=== PATIENT | female | born 1970 | race American Indian/Alaskan Native ===

== ENCOUNTER 2017-07-21 18:15 | Inpatient (IN) | payer OTHER ==
[2017-07-21] MEDS ORDERED: ASPIRIN PO ONE (19:50)
[2017-07-21 20:02] LABS: Basophils % (Auto) 0.7 % (0.0-1.8); Eosinophils # (Auto) 0.2 K/mm3 (0.0-0.4); Eosinophils % (Auto) 2.6 % (0.0-4.3); Hematocrit 33.2 % (30.3-42.9); Hemoglobin 10.9 gm/dl (10.1-14.3); Lymphocytes # (Auto) 2.2 K/mm3 (1.2-5.4); Lymphocytes % (Auto) 34.9 % (13.4-35.0); Mean Corpuscular HGB Conc 33 % (30-34); Mean Corpuscular Volume 71 fl (79-97); Monocytes # (Auto) 0.5 K/mm3 (0.0-0.8); Monocytes % (Auto) 8.5 % (0.0-7.3); Platelet Count 378 K/mm3 (140-440); Red Blood Count 4.68 M/mm3 (3.65-5.03)
[2017-07-21 20:05] LABS: Mean Corpuscular Hemoglobin 23 pg (28-32)
[2017-07-21 20:24] LABS: BUN/Creatinine Ratio 16; Blood Urea Nitrogen 16 mg/dL (7-17); Calcium 8.5 mg/dL (8.4-10.2); Hemolysis Index 17
--- NOTE | 2017-07-21 20:35 | Emergency Department Report ---
ED Chest Pain HPI - General Chief Complaint: Chest Pain Stated Complaint: CHEST PAIN Time Seen by Provider: 07/21/17 20:26 Source: patient Mode of arrival: Ambulatory Limitations: No Limitations - History of Present Illness Initial Comments: Patient is 47 years old female with no significant past medical history presented to the ER complaining of left-sided chest pain, sharp in nature radiating to the left upper extremity. Patient denied any shortness of breath, fever. No nausea no vomiting. MD Complaint: chest pain -: Last night Onset: during rest Pain Location: left chest Pain Radiation: LUE Severity scale (0 -10): 5 Quality: sharp Consistency: intermittent Treatments Prior to Arrival: none - Related Data Allergies Allergy/AdvReac Type Severity Reaction Status Date / Time Penicillins AdvReac Rash Unverified 12/05/15 11:07 Heart Score - HEART Score History: Moderately suspicious EKG: Non-specific Age: 45-65 Risk factors: No known risk factors Troponin: 1-3x normal limit HEART Score: 4 - Critical Actions Critical Actions: 4-6 pts:12-16.6% risk of adverse cardiac event. Should be admitted ED Review of Systems ROS: Stated complaint: CHEST PAIN Other details as noted in HPI Comment: All other systems reviewed and negative Constitutional: denies: chills, fever Respiratory: cough. denies: orthopnea, shortness of breath, SOB with exertion Cardiovascular: chest pain. denies: palpitations Gastrointestinal: denies: abdominal pain, nausea, vomiting Neurological: denies: headache, weakness, numbness ED Past Medical Hx - Past Medical History Previous Medical History?: No ED Physical Exam - General Limitations: No Limitations General appearance: alert, in no apparent distress - Head Head exam: Present: atraumatic, normocephalic, normal inspection - Eye Eye exam: Present: normal appearance, PERRL - ENT ENT exam: Present: normal exam, normal orophraynx, mucous membranes moist - Neck Neck exam: Present: normal inspection, full ROM. Absent: tenderness - Respiratory Respiratory exam: Present: normal lung sounds bilaterally. Absent: respiratory distress, wheezes, rales, rhonchi, chest wall tenderness, accessory muscle use, decreased breath sounds, prolonged expiratory - Cardiovascular Cardiovascular Exam: Present: regular rate, normal rhythm, normal heart sounds - GI/Abdominal GI/Abdominal exam: Present: soft, normal bowel sounds. Absent: distended, tenderness, guarding, rebound, rigid, organomegaly, mass, bruit, pulsatile mass , hernia - Extremities Exam Extremities exam: Present: normal inspection, full ROM, normal capillary refill - Back Exam Back exam: Present: normal inspection, full ROM. Absent: tenderness, CVA tenderness (R), CVA tenderness (L), muscle spasm - Neurological Exam Neurological exam: Present: alert, oriented X3, CN II-XII intact, normal gait - Skin Skin exam: Present: warm, intact, normal color ED Course Vital Signs 07/21/17 07/21/17 07/21/17 18:25 20:41 20:45 Temperature 98.4 F Pulse Rate 89 Respiratory 16 16 Rate Blood Pressure 134/92 O2 Sat by Pulse 100 100 99 Oximetry 07/21/17 07/21/17 07/21/17 21:00 21:15 21:30 Temperature Pulse Rate 82 77 77 Respiratory 18 19 18 Rate Blood Pressure 139/100 139/100 132/91 O2 Sat by Pulse 98 100 Oximetry 07/21/17 07/21/17 07/21/17 21:45 22:00 22:15 Temperature Pulse Rate 89 83 74 Respiratory 18 19 17 Rate Blood Pressure 132/91 141/95 141/95 O2 Sat by Pulse 100 100 100 Oximetry - Reevaluation(s) Reevaluation #1: 07/21/17 22:29 His case with [facility] [employer] director Dr Madrigal, who advised that patient to be admitted to be ruled out at the [facility] and to follow-up with them in their office. 07/21/17 22:33 ED Medical Decision Making - Lab Data Result diagrams: 07/21/17 19:53 07/21/17 19:53 - EKG Data -: EKG Interpreted by Me EKG shows normal: sinus rhythm - EKG Data Interpretation: no acute changes - Radiology Data Radiology results: report reviewed Chest x-ray unremarkable. - Medical Decision Making I discussed the patient is Dr. Kianna Bardales, and presented the patient, she agreed to admit to her service. Critical care attestation.: If time is entered above; I have spent that time in minutes in the direct care of this critically ill patient, excluding procedure time. ED Disposition Clinical Impression: Chest pain Disposition: DC-09 OP ADMIT IP TO THIS HOSP Is pt being admited?: Yes Condition: Stable Instructions: Chest Pain (ED) Referrals: VIVIAN CAMPO MD [Primary Care Provider] - 3-5 Days
[2017-07-21 20:44] LABS: Chol/HDL Ratio 2.86 %; HDL Cholesterol 46 mg/dL (40-59); LDL Cholesterol,Direct 81 mg/dL (50-130)
--- NOTE | 2017-07-21 20:59 | XRay Report ---
FINAL REPORT EXAM: XR CHEST 1V AP HISTORY: chest pain TECHNIQUE: upright single view chest PRIORS: None. FINDINGS: Cardiac and mediastinal contours are unremarkable. No focal pulmonary infiltrate is identified. No pleural fluid collection seen. Pulmonary vasculature is unremarkable. IMPRESSION: Negative single-view chest
[2017-07-21] MEDS ORDERED: ASPIRIN ONE (21:55)
[2017-07-21] MEDS ORDERED: TYLENOL PO PRN (23:19)
[2017-07-21] MEDS ORDERED: SODIUM CHLORIDE FLUSH SYRINGE 10 ML IV PRN (23:19)
[2017-07-21] MEDS ORDERED: ZOFRAN IV PRN (23:19)
[2017-07-21] MEDS ORDERED: MORPHINE IV PRN (23:19)
--- NOTE | 2017-07-21 23:19 | History and Physical Report ---
History of Present Illness Date of examination: 07/21/17 History of present illness: This is a 47-year-old man with no medical problems comes emergency room with complains of chest pain that started today. She describes the pain as sharp in the left chest, intermittent in nature lasting for less than 5 minutes, intensity 5/10, she can identify exacerbating or relieving factors. Admits to nausea vomiting, diaphoresis and shortness of breath, and a previous stress test Review of systems Constitutional: no weight loss, chills Ears, eyes, nose, mouth and throat: no nasal congestion, no nasal discharge, no sinus pressure, no vision change, no red eye. Neck: No neck pain or rigidity. Cardiovascular: no palpitations Respiratory: No cough Gastrointestinal: no abdominal pain, hematochezia Genitourinary : no dysuria, frequency , no hematuria Musculoskeletal: no joint swelling or muscle ache Integumentary: no rash, no pruritis Neurological: no parathesias, no numbness, no focal weakness Endocrine: no cold or heat intolerance, no polyuria or polydipsia Hematologic/Lymphatic: no easy bruising, no easy bleeding, no gland swelling Allergic/Immunologic: no urticaria, no angioedema. PAST MEDICAL HISTORY: None PAST SURGICAL HISTORY: None SOCIAL HISTORY: Denies alcohol, tobacco, drugs FAMILY HISTORY: Hypertension Medications and Allergies Allergies Allergy/AdvReac Type Severity Reaction Status Date / Time Penicillins AdvReac Rash Unverified 12/05/15 11:07 Home Medications Medication Instructions Recorded Confirmed Last Taken Type Pantoprazole [Protonix] 40 mg PO QDAY #30 tablet 07/22/17 Unknown Rx Exam - Physical Exam Narrative exam: Gen. appearance: Patient lying in bed, no apparent distress HEENT: Normocephalic, atraumatic, pupils equally round and reactive to light, extraocular movement intact, and no sclericterus,. No JVD or thyromegaly or nodule,neck supple, no carotid bruit ,mucous membranes moist, no exudate or erythema Heart: S1, S2, regular rate and rhythm Lungs: Clear to auscultation bilaterally, breathing comfortable Abdomen: Positive bowel sounds, nontender, nondistended, no organomegaly Extremity: No edema, cyanosis, clubbing Skin: No rash, nodules, warm, dry Neuro: Oriented 3, cranial nerves II-12 intact, speech is fluent, motor and sensory intact - Constitutional Vitals: Temp Pulse Resp BP Pulse Ox 98.4 F 82 20 143/97 99 07/21/17 18:25 07/21/17 23:00 07/21/17 23:00 07/21/17 23:00 07/21/17 23:00 Results - Labs CBC & Chem 7: 07/22/17 05:23 07/22/17 05:23 Labs: Abnormal lab results 07/21/17 07/21/17 Range/Units 19:53 19:53 MCV 71 L (79-97) fl MCH 23 L (28-32) pg RDW 19.0 H (13.2-15.2) % [place] % (Auto) 8.5 H (0.0-7.3) % Troponin T 0.129 H* (0.00-0.029) ng/mL - Imaging and Cardiology EKG: image reviewed Chest x-ray: image reviewed Assessment and Plan Assessment Chest pain Plan Admit medicine Check cardiac enzymes, consult cardiology DVT prophylaxis, start aspirin, IV morphine
[2017-07-22 00:48] LABS: Creatine Kinase MB 6.5 ng/mL (0.0-4.0)
[2017-07-22 05:51] LABS: Eosinophils # (Auto) 0.3 K/mm3 (0.0-0.4); Eosinophils % (Auto) 5.6 % (0.0-4.3); Hematocrit 32.3 % (30.3-42.9); Hemoglobin 10.6 gm/dl (10.1-14.3); Lymphocytes % (Auto) 41.5 % (13.4-35.0); Mean Corpuscular HGB Conc 33 % (30-34); Mean Corpuscular Volume 71 fl (79-97); Monocytes # (Auto) 0.5 K/mm3 (0.0-0.8); Monocytes % (Auto) 10.1 % (0.0-7.3); Platelet Count 334 K/mm3 (140-440); Red Blood Count 4.55 M/mm3 (3.65-5.03); Red Cell Distribution Width 18.8 % (13.2-15.2)
[2017-07-22 05:52] LABS: Mean Corpuscular Hemoglobin 23 pg (28-32)
[2017-07-22 06:11] LABS: Creatine Kinase MB 4.2 ng/mL (0.0-4.0)
[2017-07-22 06:17] LABS: BUN/Creatinine Ratio 14; Blood Urea Nitrogen 13 mg/dL (7-17); Calcium 8.5 mg/dL (8.4-10.2); Hemolysis Index 1
[2017-07-22 09:03] VITALS: BP 115/77
[2017-07-22] MEDS ORDERED: NACL 0.9% 500 ML 500 ML IV SCH (10:00)
[2017-07-22] MEDS ORDERED: SODIUM CHLORIDE FLUSH SYRINGE 10 ML IV SCH (10:00)
--- NOTE | 2017-07-22 10:02 | Progress Note ---
Assessment and Plan Assessment and plan: This is a 47-year-old man with no medical problems comes emergency room with complains of chest pain that started today. She describes the pain as sharp in the left chest, intermittent in nature lasting for less than 5 minutes, intensity 5/10, she can identify exacerbating or relieving factors. Admits to nausea vomiting, diaphoresis and shortness of breath, and a previous stress test Chest pain S/P Cardiac cath - normal coronaries and normal LVEF consult following, CTA ordered to r/O PE, continue aspirin therapy Obesity Patient counselled NSTEMI cardiology following, CE trending down DVT prophylaxis SCDs History Interval history: Patient seen and examined. No new issues overnight. She denies SOB, NV. Labs and nursing notes reviewed. Hospitalist Physical - Constitutional Vitals: Temp Pulse Resp BP Pulse Ox 98.1 F 80 16 115/77 97 07/22/17 08:47 07/22/17 08:47 07/22/17 08:47 07/22/17 08:47 07/22/17 08:47 General appearance: Present: no acute distress, well-nourished, obese - EENT Eyes: Present: PERRL, EOM intact ENT: hearing intact, clear oral mucosa - Neck Neck: Present: supple, normal ROM - Respiratory Respiratory effort: normal Respiratory: bilateral: CTA - Cardiovascular Rhythm: regular Heart Sounds: Present: S1 & S2 - Extremities Extremities: no ischemia, No edema - Abdominal General gastrointestinal: soft, non-tender, non-distended - Integumentary Integumentary: Present: clear, warm, dry - Psychiatric Psychiatric: appropriate mood/affect, intact judgment & insight, cooperative - Neurologic Neurologic: CNII-XII intact, moves all extremities - Allied Health Allied health notes reviewed: nursing Results - Labs CBC & Chem 7: 07/22/17 05:23 07/22/17 05:23 Labs: Laboratory Last Values WBC 4.9 K/mm3 (4.5-11.0) 07/22/17 05:23 RBC 4.55 M/mm3 (3.65-5.03) 07/22/17 05:23 Hgb 10.6 gm/dl (10.1-14.3) 07/22/17 05:23 Hct 32.3 % (30.3-42.9) 07/22/17 05:23 MCV 71 fl (79-97) L 07/22/17 05:23 MCH 23 pg (28-32) L 07/22/17 05:23 MCHC 33 % (30-34) 07/22/17 05:23 RDW 18.8 % (13.2-15.2) H 07/22/17 05:23 Plt Count 334 K/mm3 (140-440) 07/22/17 05:23 Lymph % (Auto) 41.5 % (13.4-35.0) H 07/22/17 05:23 Dane % (Auto) 10.1 % (0.0-7.3) H 07/22/17 05:23 Eos % (Auto) 5.6 % (0.0-4.3) H 07/22/17 05:23 Baso % (Auto) 1.0 % (0.0-1.8) 07/22/17 05:23 Lymph # 2.0 K/mm3 (1.2-5.4) 07/22/17 05:23 Dane # 0.5 K/mm3 (0.0-0.8) 07/22/17 05:23 Eos # 0.3 K/mm3 (0.0-0.4) 07/22/17 05:23 Baso # 0.0 K/mm3 (0.0-0.1) 07/22/17 05:23 Seg Neutrophils % 41.8 % (40.0-70.0) 07/22/17 05:23 Seg Neutrophils # 2.0 K/mm3 (1.8-7.7) 07/22/17 05:23 D-Dimer 193.66 ng/mlDDU (0-234) 07/21/17 20:34 Sodium 139 mmol/L (137-145) 07/22/17 05:23 Potassium 3.9 mmol/L (3.6-5.0) 07/22/17 05:23 Chloride 102.9 mmol/L (98-107) 07/22/17 05:23 Carbon Dioxide 22 mmol/L (22-30) 07/22/17 05:23 Anion Gap 18 mmol/L 07/22/17 05:23 BUN 13 mg/dL (7-17) 07/22/17 05:23 Creatinine 0.9 mg/dL (0.7-1.2) 07/22/17 05:23 Estimated GFR > 60 ml/min 07/22/17 05:23 BUN/Creatinine Ratio 14 % 07/22/17 05:23 Glucose 94 mg/dL (65-100) 07/22/17 05:23 Calcium 8.5 mg/dL (8.4-10.2) 07/22/17 05:23 Total Creatine Kinase 168 units/L (30-135) H 07/22/17 05:23 CK-MB (CK-2) 4.2 ng/mL (0.0-4.0) H 07/22/17 05:23 CK-MB (CK-2) Rel Index 2.5 (0-4) 07/22/17 05:23 Troponin T 0.070 ng/mL (0.00-0.029) H D 07/22/17 05:23 NT-Pro-B Natriuret Pep 41.38 pg/mL (0-450) 07/21/17 19:53 Triglycerides 81 mg/dL (2-149) 07/21/17 19:53 Cholesterol 132 mg/dL (50-199) 07/21/17 19:53 LDL Cholesterol Direct 81 mg/dL (50-130) 07/21/17 19:53 HDL Cholesterol 46 mg/dL (40-59) 07/21/17 19:53 Cholesterol/HDL Ratio 2.86 % 07/21/17 19:53 Lipase 38 units/L (13-60) 07/21/17 19:53
[2017-07-22 11:10] LABS: INR 0.96 (0.87-1.13)
--- NOTE | 2017-07-22 11:10 | Consultation ---
History of Present Illness Consult date: 07/22/17 Consult reason: chest pain, elevated troponin History of present illness: This is a 47yr old woman with no prior cardiac history or recent cardiac workup who is admitted with chest pain. Patient reports she developed chest pain yesterday, associated with left arm pain/numbness, nausea vomiting, diaphoresis and shortness of breath. Cardiac enzymes were measured which resulted a CK/MB of 6.5 and a normal relative index of 3.0. Troponin T of 0.117. An EKG shows a sinus rhythm, no acute ischemic changes. A cardiology consultation was requested for further evaluation. Medications and Allergies Allergies Allergy/AdvReac Type Severity Reaction Status Date / Time Penicillins AdvReac Rash Unverified 12/05/15 11:07 Home Medications Medication Instructions Recorded Confirmed Last Taken Type No Known Home Medications [No 07/21/17 07/21/17 Unknown History Reported Home Medications] Active Meds: Active Medications Acetaminophen (Tylenol) 650 mg PO Q4H PRN PRN Reason: Pain MILD(1-3)/Fever >100.5/MASON Sodium Chloride (Nacl 0.9% 500 Ml) 500 mls @ 50 mls/hr IV DIRECT [place] Stop: 07/22/17 19:59 Last Admin: 07/22/17 10:27 Dose: 50 mls/hr Morphine Sulfate (Morphine) 2 mg IV Q4H PRN PRN Reason: Pain, Moderate (4-6) Ondansetron HCl (Zofran) 4 mg IV Q8H PRN PRN Reason: Nausea And Vomiting Sodium Chloride (Sodium Chloride Flush Syringe 10 Ml) 10 ml IV BID [facility] Last Admin: 07/22/17 10:27 Dose: 10 ml Sodium Chloride (Sodium Chloride Flush Syringe 10 Ml) 10 ml IV PRN PRN PRN Reason: LINE FLUSH Physical Examination Vital Signs Temp Pulse Resp BP Pulse Ox 98.4 F 89 16 134/92 100 07/21/17 18:25 07/21/17 18:25 07/21/17 18:25 07/21/17 18:25 07/21/17 18:25 General appearance: no acute distress HEENT: Positive: PERRL Cardiac: Positive: Reg Rate and Rhythm Neuro: Positive: Grossly Intact Results 07/22/17 05:23 07/22/17 05:23 Cardiac Enzymes 07/21/17 07/22/17 Range/Units 00:08 05:23 CK-MB (CK-2) 6.5 H 4.2 H (0.0-4.0) ng/mL Lipids 07/21/17 Range/Units 19:53 Triglycerides 81 (2-149) mg/dL Cholesterol 132 (50-199) mg/dL HDL Cholesterol 46 (40-59) mg/dL Cholesterol/HDL Ratio 2.86 % CBC 07/21/17 07/22/17 Range/Units 19:53 05:23 WBC 6.3 4.9 (4.5-11.0) K/mm3 RBC 4.68 4.55 (3.65-5.03) M/mm3 Hgb 10.9 10.6 (10.1-14.3) gm/dl Hct 33.2 32.3 (30.3-42.9) % Plt Count 378 334 (140-440) K/mm3 Lymph # 2.2 2.0 (1.2-5.4) K/mm3 Divide # 0.5 0.5 (0.0-0.8) K/mm3 Eos # 0.2 0.3 (0.0-0.4) K/mm3 Baso # 0.0 0.0 (0.0-0.1) K/mm3 Comprehensive Metabolic Panel 07/21/17 07/22/17 Range/Units 19:53 05:23 Sodium 137 139 (137-145) mmol/L Potassium 4.1 3.9 (3.6-5.0) mmol/L Chloride 101.2 102.9 (98-107) mmol/L Carbon Dioxide 23 22 (22-30) mmol/L BUN 16 13 (7-17) mg/dL Creatinine 1.0 0.9 (0.7-1.2) mg/dL Glucose 82 94 (65-100) mg/dL Calcium 8.5 8.5 (8.4-10.2) mg/dL Assessment and Plan Chest pain NSTEMI We will proceed with a cardiac cath for further ischemic evaluation.
[2017-07-22] MEDS ORDERED: HEPARIN 10,000 UNITS/10 ML ONE (11:26)
[2017-07-22] MEDS ORDERED: HEPARIN/NS 5000 UNIT/500ML(CATH LAB) 1,000 ML IR ONE (11:26)
[2017-07-22] MEDS ORDERED: CALAN ONE (11:26)
[2017-07-22] MEDS ORDERED: NITROGLYCERIN SYRINGE 3 ML ONE (11:26)
[2017-07-22] MEDS ORDERED: XYLOCAINE 2% INFILTRATI ONE (11:26)
[2017-07-22] MEDS ORDERED: SUBLIMAZE ONE (11:27)
[2017-07-22] MEDS ORDERED: VERSED ONE (11:27)
[2017-07-22] MEDS ORDERED: NACL 0.9% 500 ML 0 ML ONE (11:28)
--- NOTE | 2017-07-22 13:27 | Cardiac Catherization Report ---
LEFT HEART CATHETERIZATION INDICATION: Abnormal troponin, rule out non-ST elevation myocardial infarction and chest pain. ORDERING PHYSICIAN: Kavya Antonio MD PROCEDURES PERFORMED: 1. Selective left and right coronary angiography. 2. Left ventriculography. DESCRIPTION OF PROCEDURE: After obtaining written consent, the patient was draped using sterile technique. A 2% lidocaine was injected into the right wrist. A [place] vascular sheath was inserted into the right radial artery. A [place] JL3.5 catheter was used to selectively engage the left coronary artery. A [place] JL4 catheter was used to selectively engage the right coronary artery. A [place] JR4 catheter was used to hand inject the left ventriculogram. No complications occurred during the procedure. Hemostasis was achieved at the end of the procedure using manual pressure. SPECIMEN REMOVED: None. COMPLICATIONS: None. SEDATION: Physician and patient [id number] sedation start time 11:54 a.m. Physician patient [id number] sedation stop time was 12:05 p.m. Total sedation time was 11 minutes. FINDINGS: HEMODYNAMICS: Aortic pressure 123/88. LV systolic pressure 123 mmHg, and LVEDP 12 mmHg. No significant gradient noted across the left ventricular outflow tract. CARDIAC STRUCTURES: Left ventricle is normal in size and systolic function, left ventricular ejection fraction is estimated at 60% with normal contractility. CORONARY ANATOMY: 1. Left main is angiographically normal. 2. The LAD is angiographically normal. 3. Circumflex artery is angiographically normal. 4. The right coronary artery is a small nondominant vessel that is also angiographically normal. IMPRESSION: 1. Angiographically normal left dominant circulation. 2. Normal left ventricular size and ejection fraction. 3. Normal LVEDP. RECOMMENDATIONS: Continue medical therapy. Consider obtaining a V/Q scan to rule out venous thromboembolic disease. JOB# [id number] SANDY/CHARLIE
[2017-07-22] MEDS ORDERED: ASPIRIN PO SCH (14:00)
--- NOTE | 2017-07-22 16:53 | Nuclear Medicine Report ---
FINAL REPORT EXAM: NM LUNG SCAN PERF/VENT HISTORY: Chest Pain, normal coronaries by cath, r/o VTE TECHNIQUE: Perfusion imaging of the lungs was performed in multiple planar projections. Ventilation images were obtained in the posterior projection during inhalation, equilibrium, and washout phases. Correlation with a chest x-ray dated 07/21/2017 was made. DOSE: 15.0 millicuries Xe-133 gas; 5.0 millicuries 99m Tc MAA given IV. PRIORS: None. FINDINGS: The tracer distribution on perfusion imaging is homogeneous throughout. No unmatched segmental or subsegmental perfusion defects are identified to suggest the presence of pulmonary embolism. The ventilation study is also homogeneous and within normal limits. No evidence for gas trapping is noted. IMPRESSION: Normal V/Q scan
--- NOTE | 2017-07-23 14:11 | Discharge Summary ---
Providers - Providers Date of Admission: 07/21/17 23:00 Date of discharge: 07/22/17 Attending physician: MOISES MOYA 07/21/17 23:19 Consult to Physician [CONS] Routine Consulting Provider: BEAU HAYWOOD Reason For Exam: cp Place consult to:: [facility] Notified:: Y Comment:: ADDED TO LIST 07/22/17 12:15 Consult to Cardiac Rehabilitation [CONS] Routine Reason For Exam: Cardiac Rehab Evaluation Primary care physician: VIVIAN CAMPO Hospitalization Condition: Stable Pertinent studies: Chest x-ray was negative VQ scan was normal Cardiac cath - normal coronaries and normal LVEF Hospital course: This is a 47-year-old woman with no medical problems comes emergency room with complains of chest pain that started the day of admission. She describes the pain as sharp in the left chest, intermittent in nature lasting for less than 5 minutes, intensity 5/10, she can identify exacerbating or relieving factors. Admits to nausea vomiting, diaphoresis and shortness of breath, and a previous stress test Patient received a cardiac workup which started with serial cardiac enzymes which were elevated. Cardiology services were consulted and patient underwent cardiac catheterization which was negative followed by a VQ scan which was also negative. No further cardiac workup was indicated and patient was clinically stable for discharge back to her home. Discharge diagnoses Atypical chest pain NSTEMI ruled out Obesity Elevated troponin DVT prophylaxis Disposition: DC-01 TO HOME OR SELFCARE Time spent for discharge: 32 mass Core Measure Documentation - Palliative Care Palliative Care/ Comfort Measures: Not Applicable - Core Measures Any of the following diagnoses?: none Exam - Constitutional Vitals: Temp Pulse Resp BP Pulse Ox 97.9 F 81 18 115/77 99 07/22/17 13:51 07/22/17 13:51 07/22/17 13:51 07/22/17 13:51 07/22/17 16:49 General appearance: Present: no acute distress, well-nourished - EENT Eyes: Present: PERRL ENT: hearing intact, clear oral mucosa - Neck Neck: Present: supple, normal ROM - Respiratory Respiratory effort: normal Respiratory: bilateral: CTA - Cardiovascular Heart Sounds: Present: S1 & S2. Absent: rub, click - Extremities Extremities: pulses symmetrical, No edema Peripheral Pulses: within normal limits - Abdominal General gastrointestinal: Present: soft, non-tender, non-distended, normal bowel sounds - Integumentary Integumentary: Present: clear, warm, dry - Musculoskeletal Musculoskeletal: gait normal, strength equal bilaterally - Psychiatric Psychiatric: appropriate mood/affect, intact judgment & insight - Neurologic Neurologic: CNII-XII intact, moves all extremities Plan Diet: low fat, low cholesterol, low salt Follow up with: VIVIAN CAMPO MD [Primary Care Provider] - 3-5 Days Prescriptions: Pantoprazole [Protonix] 40 mg PO QDAY #30 tablet
== END 2017-07-22 19:10 | disposition home or self-care (01) | DRG 287 ==
LOC: ED 18:15 → 4A 23:00
PROVIDERS: ADMIT Internal Medicine; ATTEND Internal Medicine
PROC: 4A023N7 Measurement of Cardiac Sampling and Pressure, Left Heart, Percutaneous Approach (ICD-10-PCS; principal; 2017-07-22)
PROC: B2111ZZ Fluoroscopy of Multiple Coronary Arteries using Low Osmolar Contrast (ICD-10-PCS; 2017-07-22)
PROC: B2151ZZ Fluoroscopy of Left Heart using Low Osmolar Contrast (ICD-10-PCS; 2017-07-22)
DX: R07.89 Other chest pain (principal); E66.9 Obesity, unspecified; Z88.0 Allergy status to penicillin; Z82.49 Family history of ischemic heart disease and other diseases of the circulatory system; Z68.33 Body mass index [BMI] 33.0-33.9, adult
CPT/HCPCS: 36415; 71045; 78582; 80048; 80061; 82550; 82553; 83690; 83880; 84484; 85025; 85379; 85610; 93005; 93010; 93458; A9540; A9558; C1894; J1644; J2250; J3010; J7040; Q9967